=== PATIENT | female | born 1975 | race Caucasian/White ===

== ENCOUNTER 2016-10-16 09:22 | Emergency (ER) | payer OTHER ==
[2016-10-16 09:36] VITALS: BP 120/91
--- NOTE | 2016-10-16 09:58 | UC ---
Lower Extremity/Ankle HPI - HPI Summary HPI Summary: L anterior ankle pain starting 2 days ago, no known trauma. Last night ankle was swollen, but swelling improved with ice & elevation. Pt had discectomy and other procedures [address] Ames in [facility]. In 2016 reinjured back by lifting daughter and was left with permanent numbness and tingling in L leg and significant motor weakness. Has not had pain like this from her back before, usually pain was in her hip/buttock. - History of Current Complaint Chief Complaint: UCLowerExtremity Stated Complaint: LEFT FOOT PAIN Time Seen by Provider: 10/16/16 09:39 Hx Obtained From: Patient Hx Last Menstrual Period: ~09/27/16 ?: No Onset/Duration: Gradual Onset, Lasting Days Severity Initially: Moderate Severity Currently: Moderate Aggravating Factor(s): Standing, Ambulation Alleviating Factor(s): Rest Able to Bear Weight: Yes - with difficulty - Allergies/Home Medications Allergies/Adverse Reactions: Allergies Allergy/AdvReac Type Severity Reaction Status Date / Time No Known Allergies Allergy Verified 10/16/16 09:31 Home Medications: Home Medications Acetaminophen [Acetaminophen Extra Stren] 1,500 mg PO Q6H PRN 10/16/16 [History Confirmed 10/16/16] Ibuprofen TAB* [Motrin TAB* 800 MG] 800 mg PO Q4H PRN 10/16/16 [History Confirmed 10/16/16] PMH/Surg Hx/FS Hx/Imm Hx Respiratory History Of: Reports: Pneumonia GI/ History Of: Reports: Kidney Stones - HX OF 12 YEARS AGO Neurological History Of: Reports: Migraine - 12-15 DAYS PER MONTH SINCE AGE 13- [place] WITH REST - Surgical History Surgical History: Yes Surgery Procedure, Year, and Place: Left Wrist [place] [facility] [place] [facility]. knee surgery-[place]. AGE 4- [facility] [place]. LOCAL - LUMPECTOMY BREAST-7 YEARS AGO - Family History Known Family History: Positive: Cardiac Disease, Hypertension Negative: Diabetes - Social History Lives: With Family Alcohol Use: None Substance Use Type: None Smoking Status (MU): Heavy Every Day Tobacco Smoker Type: Cigarettes Amount Used/How Often: 1/2 PPD X 15 YEARS Have You Smoked in the Last Year: No Household Exposure Type: Cigarettes - Immunization History Most Recent Influenza Vaccination: Not the 2015/2016 Season Review of Systems Constitutional: Negative Skin: Negative Eyes: Negative ENT: Negative Respiratory: Negative Cardiovascular: Negative Gastrointestinal: Negative Genitourinary: Negative Motor: Negative Neurovascular: Negative Musculoskeletal: Arthralgia Neurological: Negative Psychological: Negative All Other Systems Reviewed And Are Negative: Yes Physical Exam Triage Information Reviewed: Yes Appearance: Pain Distress - with standing, Thin Vital Signs: Initial Vital Signs Temp 98.1 F 10/16/16 09:26 Pulse 75 10/16/16 09:26 Resp 16 10/16/16 09:26 BP 120/91 10/16/16 09:26 Pulse Ox 100 10/16/16 09:26 Vital Signs Reviewed: Yes Eye Exam: Normal Eyes: Positive: Conjunctiva Clear ENT Exam: Normal ENT: Positive: Normal ENT inspection, Hearing grossly normal, Pharynx normal, TMs normal Neck exam: Normal Respiratory Exam: Normal Respiratory: Positive: Chest non-tender, Lungs clear, Normal breath sounds, No respiratory distress, No accessory muscle use Cardiovascular Exam: Normal Cardiovascular: Positive: RRR, No Murmur Musculoskeletal: Positive: ROM Limited @ - LLE pervasive weakness, marked weakness with knee flexion and ankle movements. Neurological Exam: Other - decreased sensation along L lateral thigh down to top of L foot & ankle Psychological Exam: Normal Skin Exam: Normal Lower Extremity Course/Dx - Course Course Of Treatment: List of PCPs provided. Encouraged pt to call for apt right away. - Differential Dx/Diagnosis Provider Diagnoses: Lumbar radiculopathy. LLE pain Discharge - Discharge Plan Condition: Stable Disposition: HOME Prescriptions: HYDROcodone/ACETAMIN 5-325 MG* [[place] 5-325 TAB*] 1 tab PO Q4HR PRN #12 tab MDD 6 PRN Reason: Pain predniSONE TAB* [Deltasone TAB*] 10 mg PO DAILY #45 tab Patient Education Materials: Lumbar Radiculopathy (ED) Referrals: Matthew Cassidy MD [Medical Doctor] - No Primary Care Phys,NOPCP [Primary Care Provider] - Additional Instructions: To arrange for an appointment in [place], please call [phone].
--- NOTE | 2016-10-16 10:13 | RAD ---
HISTORY: Acute pain COMPARISONS: None VIEWS: 3, Frontal, lateral, and oblique views of the left ankle FINDINGS: BONE DENSITY: Normal. BONES: There is no displaced fracture. JOINTS: There is no arthropathy. ALIGNMENT: There is no dislocation. SOFT TISSUES: Unremarkable. OTHER FINDINGS: None. IMPRESSION: NO ACUTE OSSEOUS INJURY. IF SYMPTOMS PERSIST, RECOMMEND REPEAT IMAGING.
== END 2016-10-16 10:33 | disposition home or self-care (01) ==
LOC: UCCORT 09:22
DX: M54.16 Radiculopathy, lumbar region (principal); M25.572 Pain in left ankle and joints of left foot; Z87.442 Personal history of urinary calculi; F17.210 Nicotine dependence, cigarettes, uncomplicated
CPT/HCPCS: 99212; G0463

== ENCOUNTER → 2016-11-23 08:15 | Day surgery (SDC) | payer OTHER ==
[~2016-11-23 08:15] MED LIST: Bacitracin IV* 50,000 UNITS INJ ONE; Buffered Lidocaine 1% SYRIN* 3 ML/SYR SYRINGE INTRADERM ONE; Cisatracurium* 2 MG/ML MDV 5 ML ONE; Dexamethasone IV* 4 MG/ML 1 ML (4 MG) ONE; Famotidine IV* 10 MG/ML 2 ML (20 mg) IV ONE; Famotidine IV* 10 MG/ML 2 ML (20 mg) ONE; HYDROcodone/ACETAMIN 5-325 MG* 1 TAB PO PRN; HYDROmorphone* 1 MG/ML 1 ML SYR IV PRN; HYDROmorphone* 1 MG/ML 1 ML SYR ONE; KETAMINE HCL* 50 MG/ML 10 ML VIAL ONE; Lidocain 1% EPI 1:100,000 * 30 ML MDV ONE; Lidocaine 1% MPF wEPI 200,000* 30 ML SDV ONE; Lidocaine 2% PF* 5 ML VIAL ONE; Metoclopramide TAB* 10 MG ONE; Metoclopramide TAB* 10 MG PO ONE; Midazolam* 1 MG/ML 5 ML VIAL (5 MG) ONE; Ondansetron INJ* 2 MG/ML VIAL IV PRN; Propofol* 10 MG/ML 20 ML BTL IV PUSH ONE; Thrombin 5,000 UNITS* 1 APPLIC KIT - topical use - TOPICAL ONE; ceFAZolin 2 GM PREMIX(*) 2 GM/50 ML BAG IVPB ONE; fentaNYL* 50 MCG/ML 2 ML VIAL (100 MCG VIAL) ONE; oxyCODONE/Acetamin 5/325 MG* TAB ONE
[2016-11-23 08:19] LABS: Manual Entry Verification AS; UR Preg Internal Control QC Line Present; UR Preg Kit Lot# 6030156
[2016-11-23] MEDS: fentaNYL* 50 MCG/ML 2 ML VIAL (100 MCG VIAL) IV PRN ×2 (12:02→12:38)
[2016-11-23] MEDS: oxyCODONE/Acetamin 5/325 MG* TAB PO PRN ×2 (12:13→12:53)
[2016-11-23 13:03] VITALS: BP 129/78
--- NOTE | 2016-11-23 13:25 | RAD ---
INDICATION: Crosstable lateral acquired prior to lumbar back surgery COMPARISON: Lumbar radiograph dated July 06, 2008 TECHNIQUE: A single crosstable lateral view was acquired of the lumbar spine in the operating room. FINDINGS: Crosstable radiograph shows appropriately aligned lumbar spine. There is a retractor at the L5 level. A surgical instrument is overlapping the posterior inferior corner of the L5 vertebral body. IMPRESSION: Intraoperative image as described above.
--- NOTE | 2016-11-27 04:43 | OP ---
DATE OF OPERATION: 11/23/16 [facility] DATE OF : 73 SURGEON: Matthew Cassidy MD [employer] SUPERVISOR: AUTUMN Fuentes. ANESTHESIOLOGIST: Jony Armstrong MD ANESTHESIA: General. PRE-OP DIAGNOSIS: Recurrent herniated nucleus pulposus, L5-S1 on the left. POST-OP DIAGNOSIS: Recurrent herniated nucleus pulposus, L5-S1 on the left. OPERATIVE PROCEDURE: Redo lumbar diskectomy, L5-S1 on the left, with microdissection. DESCRIPTION OF PROCEDURE: After satisfactory general anesthesia was obtained, the patient was placed on the operating table in the prone position with the chest supported on the José Miguel frame and the back slightly flexed. The lumbar region was then clipped, prepped, and draped in a sterile manner for lumbar laminectomy and the skin incision outlined along a previous incision from L5- S1. This incision was infiltrated with 1% Xylocaine with epinephrine, after which it was turned down sharply to the level of the lumbar fascia. The fascia and scar tissue was dissected free from the posterior elements of L5 and the upper sacrum. An intraoperative radiograph was obtained verifying proper interspace localization, after which the outlines of the prior laminectomy were dissected free utilizing sharp and blunt dissection. Additional inferior portions of the L5 lamina were removed with a combination of the Midas Alessandro drill and Kerrison rongeurs until normal dura was encountered. In a similar manner, scar was dissected free laterally and additional bone removed laterally and additional bone removed over the sacrum to note identification of normal anatomy. At this point, the operating microscope was then brought into the field and the remainder of the procedure was done under microscopic visualization. There was noted to be adherent scar and herniated disk tissue that was adherent to the nerve root at the level of the disk itself. This was dissected free utilizing curettes. An opening was made in the posterior longitudinal ligament and the disk space cleared of any loose disk material using pituitary forceps and curettes. This appeared to be a chronic calcified disk herniation, which was decompressed primarily using Bibiana reverse angle curettes. Ultimately, the S1 nerve root was noted to be free in its course. It was felt that a satisfactory decompression had been achieved. After assuring adequate hemostasis the wound was thoroughly irrigated, after which a piece of Gelfoam was placed over the laminectomy defect. The fascia was then reapproximated with 0 Vicryl suture. The subcutaneous tissues were closed with 3-0 Vicryl suture and the skin closed with skin clips. The estimated blood loss was less than 50 cc, and the final sponge, padding, and needle counts were correct. The patient was taken to the recovery room, extubated, and in stable condition. [id number]/[facility] #: [id number] MTDD
== END | disposition home or self-care (01) ==
LOC: OR 08:15
PROVIDERS: ATTEND Neurological Surgery
DX: M51.16 Intervertebral disc disorders with radiculopathy, lumbar region (principal); F17.200 Nicotine dependence, unspecified, uncomplicated
CPT/HCPCS: 72100; 81025; 88304; A9270-GY; J0690; J1100; J1170; J2001; J2250; J2704; J3010

== ENCOUNTER 2017-02-08 19:10 | Emergency (ER) | payer OTHER ==
[2017-02-08 19:34] VITALS: BP 127/81
--- NOTE | 2017-02-08 20:23 | UC ---
Upper Extremity HPI - HPI Summary HPI Summary: The patient comes in today for: 1. Right elbow pain: Onset: 1 month Palliative/provocative: Worse with lifting object in the right hand. Quality: Ache Region: Right elbow. Severity: 610 Time: Constant. Associated symptoms: Numbness: Tingling (comes and goes) of the index and middle finger. Weakness: Due to pain. * - History of Current Complaint Chief Complaint: UCUpperExtremity Stated Complaint: RIGHT ELBOW PAIN Time Seen by Provider: 02/08/17 20:11 Hx Obtained From: Patient, Family/Procurement Consultant Hx Last Menstrual Period: 02/03/17 ?: No - Allergies/Home Medications Allergies/Adverse Reactions: Allergies Allergy/AdvReac Type Severity Reaction Status Date / Time No Known Allergies Allergy Verified 11/23/16 08:25 PMH/Surg Hx/FS Hx/Imm Hx Previously Healthy: No - Back surgery. Neurological History: Migraine - Surgical History Surgical History: Yes Surgery Procedure, Year, and Place: Left Wrist and Left Trigger Thumb, 2016, [facility]. L5/S1 DISCECTOMY 2009 back surgery- [facility]. RT knee surgery- [place]. AGE 4- [facility]. LOCAL - LEFT LUMPECTOMY BREAST-7 YEARS AGO - Family History Known Family History: Positive: Cardiac Disease, Hypertension Negative: Diabetes - Social History Occupation: Student Lives: With Family Alcohol Use: None Substance Use Type: None Smoking Status (MU): Heavy Every Day Tobacco Smoker Type: Cigarettes Amount Used/How Often: 1/2 PPD X 15 YEARS Have You Smoked in the Last Year: No Household Exposure Type: Cigarettes - Immunization History Most Recent Influenza Vaccination: Not the Season Review of Systems Constitutional: Negative Skin: Negative Eyes: Negative ENT: Negative Respiratory: Negative Cardiovascular: Negative Gastrointestinal: Negative Genitourinary: Negative Motor: Negative Neurovascular: Negative Musculoskeletal: Negative Neurological: Negative Psychological: Negative All Other Systems Reviewed And Are Negative: Yes Physical Exam Triage Information Reviewed: Yes Appearance: Well-Appearing, No Pain Distress, Well-Nourished, Thin Vital Signs: Initial Vital Signs Temp 98.9 F 02/08/17 19:27 Pulse 77 02/08/17 19:27 Resp 16 02/08/17 19:27 BP 127/81 02/08/17 19:27 Pulse Ox 99 02/08/17 19:27 Vital Signs Reviewed: Yes Eyes: Positive: Conjunctiva Clear. Negative: Discharge ENT: Positive: Hearing grossly normal. Negative: Pharyngeal erythema, Nasal congestion, Nasal drainage, TM bulging, TM dull, TM red, Tonsillar swelling, Tonsillar exudate Dental: Negative: Gross Decay/Caries @, Dental Fracture @ Neck: Positive: Supple, Nontender, No Lymphadenopathy. Negative: Nuchal Rigidity Respiratory: Positive: Lungs clear, No respiratory distress. Negative: Crackles , Wheezing Cardiovascular: Positive: RRR, No Murmur Abdomen Description: Positive: Nontender, No Organomegaly, Soft. Negative: Distended, Guarding Musculoskeletal: Positive: Strength Intact, ROM Intact, No Edema, Other: - Tinel 's and PHalens sign unremarkable. There is tenderness to palpation of the right lateral epicondyle. Neurological: Positive: Alert, Muscle Tone Normal Psychological: Positive: Age Appropriate Behavior, Consolable Skin: Negative: rashes, breakdown Upper Extremity Course/Dx - Differential Dx/Diagnosis Provider Diagnoses: Carpal tunnel, right. Right lateral epicondylitis Discharge - Discharge Plan Condition: Stable Disposition: HOME Patient Education Materials: Tennis Elbow (ED), Paresthesia (ED) Referrals: No Primary Care Phys,NOPCP [Primary Care Provider] - 1 Week (Please see your primary care provider in about a week. If you don't have a primary care provider, please reference the included sheet of local provider. If you get worse, please be seen sooner.) Merrick Kelley MD [Medical Doctor] - 1 Week (Please call Dr. Alegre's office for a follow up evaluation and treatment.)
== END 2017-02-08 20:49 | disposition home or self-care (01) ==
LOC: UCCORT 19:10
DX: G56.01 Carpal tunnel syndrome, right upper limb (principal); M77.11 Lateral epicondylitis, right elbow; G43.909 Migraine, unspecified, not intractable, without status migrainosus; F17.210 Nicotine dependence, cigarettes, uncomplicated
CPT/HCPCS: 99212; G0463

== ENCOUNTER 2018-01-09 15:17 | Emergency (ER) | payer OTHER ==
[2018-01-09 15:40] VITALS: BP 128/77
--- NOTE | 2018-01-09 16:13 | UC ---
Lower Extremity/Ankle HPI - HPI Summary HPI Summary: C/o gradual onset left lateral foot pain. 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 Is unsure if she injured foot as she has a "numb foot" . - History of Current Complaint Chief Complaint: UCLowerExtremity Stated Complaint: LFT FOOT INJURY Time Seen by Provider: 01/09/18 15:27 Hx Obtained From: Patient Hx Last Menstrual Period: 12/14/17 ?: No Onset/Duration: Gradual Onset, Lasting Days, Still Present Severity Initially: Mild Severity Currently: Severe Pain Intensity: 10 Aggravating Factor(s): Standing, Ambulation Alleviating Factor(s): Rest, Elevation Able to Bear Weight: Yes - minimal - Risk Factors Gout Risk Factors: Age Over 40 - Allergies/Home Medications Allergies/Adverse Reactions: Allergies Allergy/AdvReac Type Severity Reaction Status Date / Time No Known Allergies Allergy Verified 01/09/18 15:41 Home Medications: Home Medications Acetaminophen [Acetaminophen Extra Strength] 1,000 mg PO Q4H PRN 01/09/18 [ History Confirmed 01/09/18] Ibuprofen TAB* [Motrin TAB* 800 MG] 1,600 mg PO Q8H PRN 01/09/18 [History Confirmed 01/09/18] PMH/Surg Hx/FS Hx/Imm Hx Previously Healthy: Yes - Surgical History Surgical History: Yes Surgery Procedure, Year, and Place: Left Wrist and Left Trigger Thumb, 2016, [facility]. L5/S1 DISCECTOMY 2009 back surgery- [facility]. RT knee surgery- [place]. AGE 4- [facility]. LOCAL - LEFT LUMPECTOMY BREAST-7 YEARS AGO - Family History Known Family History: Positive: Cardiac Disease, Hypertension Negative: Diabetes - Social History Occupation: Works From/At Home Lives: With Family Alcohol Use: None Substance Use Type: None Smoking Status (MU): Heavy Every Day Tobacco Smoker Type: Cigarettes Amount Used/How Often: 1/2 PPD X 15 YEARS Have You Smoked in the Last Year: Yes Household Exposure Type: Cigarettes - Immunization History Most Recent Influenza Vaccination: Not the 2015/2016 Season Review of Systems Constitutional: Negative Skin: Bruising - left lateral mid foot Eyes: Negative ENT: Negative Respiratory: Negative Cardiovascular: Negative Gastrointestinal: Negative Genitourinary: Negative Motor: Negative Neurovascular: Negative Musculoskeletal: Arthralgia, Decreased ROM - preexisting, Myalgia Neurological: Negative Psychological: Negative Is Patient Immunocompromised?: No All Other Systems Reviewed And Are Negative: Yes Physical Exam Triage Information Reviewed: Yes Appearance: Well-Appearing Vital Signs: Initial Vital Signs Temp 100.8 F 01/09/18 15:26 Pulse 106 01/09/18 15:26 Resp 18 01/09/18 15:26 BP 128/77 01/09/18 15:26 Pulse Ox 100 01/09/18 15:26 Vital Signs Reviewed: Yes Eye Exam: Normal ENT Exam: Normal ENT: Positive: Hearing grossly normal Dental Exam: Normal Respiratory: Positive: No respiratory distress Musculoskeletal Exam: Other Musculoskeletal: Positive: Strength Limited @ - left leg, left lateral mid, foot , ROM Limited @ Neurological Exam: Normal Psychological Exam: Normal Skin Exam: Other - contusion left lateral mid foot Diagnostics - Radiology No standard instances Radiology Interpretation Completed By: Radiologist - FINDINGS: The bony structures, joint spaces, and soft tissues are normal for age. IMPRESSION: NEGATIVE EXAMINATION. Lower Extremity Course/Dx - Differential Dx/Diagnosis Differential Diagnosis/HQI/PQRI: Contusion, Fracture (Closed) Provider Diagnoses: contusion left foot. Discharge - Sign-Out/Discharge Documenting (check all that apply): Discharge/Admit/Transfer - Discharge Plan Condition: Stable Disposition: HOME Patient Education Materials: Foot Contusion (ED) Referrals: [facility]ERR[facility] [Outside] No Primary Care Phys,NOPCP [Primary Care Provider] - - Billing Disposition and Condition Condition: STABLE Disposition: HOME
--- NOTE | 2018-01-09 16:36 | RAD ---
INDICATION: Left foot pain COMPARISON: None TECHNIQUE: AP, lateral, and oblique views were obtained. FINDINGS: The bony structures, joint spaces, and soft tissues are normal for age. IMPRESSION: NEGATIVE EXAMINATION.
== END 2018-01-09 16:56 | disposition home or self-care (01) ==
LOC: UCCORT 15:17
DX: S90.32XA Contusion of left foot, initial encounter (principal); X58.XXXA Exposure to other specified factors, initial encounter; Y93.9 Activity, unspecified; Y92.9 Unspecified place or not applicable; F17.210 Nicotine dependence, cigarettes, uncomplicated
CPT/HCPCS: 99212; G0463

== ENCOUNTER 2018-03-24 11:23 | Emergency (ER) | payer OTHER ==
[2018-03-24 11:37] VITALS: BP 122/84
[2018-03-24] MEDS ORDERED: Albuterol/Ipratropium NEB.SOL* Albuterol 2.5 MG/Ipratropium 0.5 MG 3 ML INH ONE (11:45)
--- NOTE | 2018-03-24 12:01 | UC ---
Respiratory Complaint HPI - HPI Summary HPI Summary: C/O cough with wheezing over the last month. Worse in the last week. Cough productive of purulent sputum. C/O rib and low back pain. - History of Current Complaint Chief Complaint: UCRespiratory Stated Complaint: UPPER RESP,COUGH Hx Obtained From: Patient Hx Last Menstrual Period: present ?: No Onset/Duration: Gradual Onset, Lasting Weeks - 4, Worse Since - in the past week Timing: Constant Severity Initially: Mild Severity Currently: Moderate Pain Intensity: 6 Character: Cough: Productive Aggravating Factors: Deep Breaths, Recumbent Position Alleviating Factors: Nothing Associated Signs And Symptoms: Positive: Chills, Wheezing, URI, Nasal Congestion , Sinus Discomfort - Risk Factors Pulmonary Embolism Risk Factors: Smoking Cardiac Risk Factors: Smoking - Allergies/Home Medications Allergies/Adverse Reactions: Allergies Allergy/AdvReac Type Severity Reaction Status Date / Time No Known Allergies Allergy Verified 03/24/18 11:37 Home Medications: Home Medications SUMAtriptan TAB* [Imitrex TAB*] 25 mg PO SEE INSTRUCTIONS 03/24/18 [History Confirmed 03/24/18] PMH/Surg Hx/FS Hx/Imm Hx Previously Healthy: Yes - Surgical History Surgical History: Yes Surgery Procedure, Year, and Place: Left Wrist and Left Trigger Thumb, 2016, [facility]. L5/S1 DISCECTOMY 2009 back surgery- [facility]. RT knee surgery- [place]. AGE 4- [facility] [place]. LOCAL - LEFT LUMPECTOMY BREAST-7 YEARS AGO - Family History Known Family History: Positive: Cardiac Disease, Hypertension Negative: Diabetes - Social History Occupation: Employed Full-time Lives: With Family Alcohol Use: None Substance Use Type: None Smoking Status (MU): Heavy Every Day Tobacco Smoker Type: Cigarettes Amount Used/How Often: 1/2 PPD X 15 YEARS Have You Smoked in the Last Year: Yes Household Exposure Type: Cigarettes - Immunization History Most Recent Influenza Vaccination: Not the 2015/2016 Season Review of Systems Constitutional: Chills ENT: Sore Throat, Sinus Congestion Respiratory: Shortness Of Breath, Cough Is Patient Immunocompromised?: No All Other Systems Reviewed And Are Negative: Yes Physical Exam Triage Information Reviewed: Yes Appearance: No Pain Distress, Well-Nourished, Ill-Appearing Vital Signs: Initial Vital Signs Temp 99.2 F 03/24/18 11:31 Pulse 98 03/24/18 11:31 Resp 16 03/24/18 11:31 BP 122/84 03/24/18 11:31 Pulse Ox 100 03/24/18 11:31 Vital Signs Reviewed: Yes Eyes: Positive: Conjunctiva Clear ENT: Positive: Nasal congestion, TMs normal, Sinus tenderness - mild frontal Neck exam: Normal Respiratory: Positive: Decreased breath sounds, Wheezing - diffuse end inspiratory wheezes Cardiovascular Exam: Normal Musculoskeletal Exam: Normal Neurological Exam: Normal Psychological Exam: Normal Skin Exam: Normal UC Diagnostic Evaluation - Laboratory O2 Sat by Pulse Oximetry: 100 - Radiology Xray Interpretation: No Acute Changes Radiology Interpretation Completed By: ED Physician Respiratory Course/Dx - Differential Dx/Diagnosis Differential Diagnosis/HQI/PQRI: Asthma, Exacerbation Of COPD, Lower Resp Infection, Sinusitis Provider Diagnoses: COPD with acute exacerbation. Acute sinusitis Discharge - Sign-Out/Discharge Documenting (check all that apply): Patient Departure - Discharge Plan Condition: Stable Disposition: HOME Prescriptions: Albuterol HFA INHALER* [Ventolin HFA Inhaler*] 2 puff INH Q4H PRN #1 mdi PRN Reason: Sob/Wheezing predniSONE [Prednisone 20 MG TAB] 20 mg PO DAILY #18 tablet Sulfamethox/Trimethoprim DS* [Bactrim DS 800/160 TAB*] 1 tab PO BID #20 tab Patient Education Materials: COPD (Chronic Obstructive Pulmonary Disease) (ED) , Sinusitis (ED), Sulfamethoxazole/Trimethoprim (By mouth), Prednisone (By mouth ) Referrals: No Primary Care Phys,NOPCP [Primary Care Provider] - Additional Instructions: Smoking Cessation Tricks. 1. Cut down by 1 cigarette per day every 2-3 days. Write the number of smokes for that day on the calendar. 2. Identify triggers to smoking: after meals, on the phone, in the car, with coffee, on breaks at work, etc. 3. Formulate a plan with a behavior to replace the smoking. Fireballs in the car , doodle pad on the phone, flavored creamer for the coffee, go for a walk after a meal or on break at work. 4. For stress smokes do deep breathing relaxation. Breath deep in through the nose hold the breath in for a few seconds then breath out slowly through the mouth. - Billing Disposition and Condition Condition: STABLE Disposition: Home
--- NOTE | 2018-03-24 12:23 | RAD ---
INDICATION: Short of breath COMPARISON: November 20, 2016 TECHNIQUE: PA and lateral dual-energy views were obtained. FINDINGS: Bones/Soft Tissues: There are no acute bony findings. Cardiomediastinal: The cardiomediastinal silhouette is normal. Lungs: There are no infiltrates. There is mild hyperinflation. Pleura: There are no pleural effusions. Other: None IMPRESSION: NO ACTIVE DISEASE. HYPERINFLATION.
== END 2018-03-24 12:39 | disposition home or self-care (01) ==
LOC: UCCORT 11:23
DX: J44.1 Chronic obstructive pulmonary disease with (acute) exacerbation (principal); J01.90 Acute sinusitis, unspecified; F17.210 Nicotine dependence, cigarettes, uncomplicated
CPT/HCPCS: 71046; 99212; A9270-GY; G0463